=== PATIENT | female | born 1950 | race Two or more races ===

== ENCOUNTER 2018-01-10 03:10 | Inpatient (IN) | payer OTHER ==
[~2018-01-10] VITALS: Ht 152.4 cm; Wt 5.0 kg
[~2018-01-10 03:10] MED LIST: ASA81 MG; ASPIR 8181 MG PO; AVAPRO75 MG; CIPRO500 MG PO; GUAIFENESIN DM118 ML PO; HUMALOG MI100 UNIT/1; HYDRALAZINE HCL25 MG PO; IMODIUM A-1 MG/7.5 M PO; LEVAQUIN500 MG PO; LIPITOR40 MG; LOVENOX40 MG/0.4 SUBCUTANEO; METFORMIN HCL500 MG; PERCOCET 5-3251 EACH PO; PROTONIX20 MG; PROTONIX40 M1 PO; SYNTHROID50 MCG; VERAPAMIL ER240 MG
[2018-01-10] MEDS ORDERED: PROTONIX40 MG PO (03:44)
[2018-01-10] MEDS ORDERED: VERAPAMIL ER240 MG PO (03:45)
[2018-01-10] MEDS ORDERED: LACTULOSE10 GM/15 M PO (03:46)
[2018-01-28] MEDS ORDERED: LACTULOSE20 GM/30 M PO (09:43)
== END 2018-01-28 16:15 | disposition home or self-care (01) | DRG 389 ==
LOC: ER 03:10 → MEDJ 16:26
PROC: 4A033R1 Measurement of Arterial Saturation, Peripheral, Percutaneous Approach (ICD-10-PCS; 2018-01-10)
PROC: BW21YZZ Computerized Tomography (CT Scan) of Abdomen and Pelvis using Other Contrast (ICD-10-PCS; 2018-01-10)
PROC: 3E0336Z Introduction of Nutritional Substance into Peripheral Vein, Percutaneous Approach (ICD-10-PCS; 2018-01-11)
PROC: 02H633Z Insertion of Infusion Device into Right Atrium, Percutaneous Approach (ICD-10-PCS; 2018-01-12)
PROC: BW21Y0Z Computerized Tomography (CT Scan) of Abdomen and Pelvis using Other Contrast, Unenhanced and Enhanced (ICD-10-PCS; 2018-01-14)
PROC: 0DBN8ZX Excision of Sigmoid Colon, Via Natural or Artificial Opening Endoscopic, Diagnostic (ICD-10-PCS; principal; 2018-01-15)
PROC: 0D20XUZ Change Feeding Device in Upper Intestinal Tract, External Approach (ICD-10-PCS; 2018-01-26)
DX: K56.600 Partial intestinal obstruction, unspecified as to cause (principal); I69.351 Hemiplegia and hemiparesis following cerebral infarction affecting right dominant side; K94.23 Gastrostomy malfunction; G40.89 Other seizures; N39.0 Urinary tract infection, site not specified; K51.512 Left sided colitis with intestinal obstruction; E11.9 Type 2 diabetes mellitus without complications; K59.09 Other constipation; E03.8 Other specified hypothyroidism; I25.2 Old myocardial infarction; I10 Essential (primary) hypertension; R13.19 Other dysphagia; J44.9 Chronic obstructive pulmonary disease, unspecified; D64.89 Other specified anemias; R42 Dizziness and giddiness

== ENCOUNTER 2018-02-04 17:27 | Inpatient (IN) | payer OTHER ==
[~2018-02-04] VITALS: Ht 160 cm; Wt 72.6 kg
[~2018-02-04 17:27] MED LIST changes: +LACTULOSE10 GM/15 M PO; +LACTULOSE20 GM/30 M PO; +PROTONIX40 MG PO; +VERAPAMIL ER240 MG PO
[2018-02-20] MEDS ORDERED: AVAPRO150 MG PO (11:10)
[2018-02-20] MEDS ORDERED: LEVOTHYROXINE50 MCG PO (11:10)
[2018-02-20] MEDS ORDERED: METFORMIN HCL500 M2 PO (11:10)
[2018-02-20] MEDS ORDERED: Calan Sr 240MG TABLE PO (11:10)
== END 2018-02-20 17:52 | DRG 571 ==
LOC: ER 17:27 → MEDJ 02-05 18:10 → MEDI 02-05 18:10 → MEDJ 02-10 16:31
PROVIDERS: Orthopaedic Surgery
PROC: 0JBL0ZZ Excision of Right Upper Leg Subcutaneous Tissue and Fascia, Open Approach (ICD-10-PCS; 2018-02-10)
PROC: 0SP90JZ Removal of Synthetic Substitute from Right Hip Joint, Open Approach (ICD-10-PCS; 2018-02-10)
PROC: 8E0ZXY6 Isolation (ICD-10-PCS; 2018-02-10)
PROC: 0SR90JZ Replacement of Right Hip Joint with Synthetic Substitute, Open Approach (ICD-10-PCS; principal; 2018-02-10 07:00)
PROC: 02HV33Z Insertion of Infusion Device into Superior Vena Cava, Percutaneous Approach (ICD-10-PCS; 2018-02-11)
PROC: 30233N1 Transfusion of Nonautologous Red Blood Cells into Peripheral Vein, Percutaneous Approach (ICD-10-PCS; 2018-02-12)
DX: L02.415 Cutaneous abscess of right lower limb (principal); I69.351 Hemiplegia and hemiparesis following cerebral infarction affecting right dominant side; T81.4XXA Infection following a procedure, initial encounter; B96.4 Proteus (mirabilis) (morganii) as the cause of diseases classified elsewhere; Z74.01 Bed confinement status; E03.8 Other specified hypothyroidism; R13.19 Other dysphagia; Z93.1 Gastrostomy status; E11.65 Type 2 diabetes mellitus with hyperglycemia; I25.2 Old myocardial infarction; Z96.641 Presence of right artificial hip joint; D64.89 Other specified anemias; I10 Essential (primary) hypertension; Y83.8 Other surgical procedures as the cause of abnormal reaction of the patient, or of later complication, without mention of misadventure at the time of the procedure; Y92.098 Other place in other non-institutional residence as the place of occurrence of the external cause

== ENCOUNTER 2018-04-12 08:42 | Emergency (ER) | payer OTHER ==
[~2018-04-12] VITALS: Ht 157.5 cm; Wt 45.4 kg
[~2018-04-12 08:42] MED LIST changes: +AVAPRO150 MG PO; +Calan Sr 240MG TABLE PO; +LEVOTHYROXINE50 MCG PO; +METFORMIN HCL500 M2 PO
[2018-04-12] MEDS ORDERED: LINZESS145 MCG (08:58)
[2018-04-13] MEDS ORDERED: HUMALOG MI100 UNIT/1 SUBCUTANEO (09:50)
[2018-04-13] MEDS ORDERED: METFORMIN HCL500 MG PO (09:50)
== END 2018-04-13 09:54 | disposition home or self-care (01) ==
LOC: ER 08:42
DX: E11.65 Type 2 diabetes mellitus with hyperglycemia (principal); E86.0 Dehydration

== ENCOUNTER 2018-04-15 19:09 | Emergency (ER) | payer OTHER ==
[~2018-04-15] VITALS: Ht 154.9 cm; Wt 45.4 kg
[~2018-04-15 19:09] MED LIST changes: +HUMALOG MI100 UNIT/1 SUBCUTANEO; +LINZESS145 MCG; +METFORMIN HCL500 MG PO
== END 2018-04-15 22:40 | disposition home or self-care (01) ==
LOC: ER 19:09
DX: S01.121A Laceration with foreign body of right eyelid and periocular area, initial encounter (principal); S40.011A Contusion of right shoulder, initial encounter; S70.01XA Contusion of right hip, initial encounter; W45.8XXA Other foreign body or object entering through skin, initial encounter; Y93.89 Activity, other specified; Y92.018 Other place in single-family (private) house as the place of occurrence of the external cause; Y99.8 Other external cause status

== ENCOUNTER 2018-05-10 13:17 | Inpatient (IN) | payer OTHER ==
[~2018-05-10] VITALS: Ht 154.9 cm; Wt 120.0 kg
[2018-05-10] MEDS ORDERED: LINZESS145 MCG (13:49)
[2018-05-10] MEDS ORDERED: AVAPRO300 MG (13:49)
[2018-05-10] MEDS ORDERED: ATORVASTATIN CA40 MG (13:49)
[2018-05-10] MEDS ORDERED: LEVO-T50 MCG (13:49)
[2018-05-10] MEDS ORDERED: CALCIUM 600 +1 EACH (13:50)
[2018-05-10] MEDS ORDERED: METFORMIN HCL500 MG (13:50)
[2018-05-10] MEDS ORDERED: VERAPAMIL ER240 MG (13:50)
[2018-05-10] MEDS ORDERED: ASPIR 8181 MG (13:51)
[2018-05-10] MEDS ORDERED: PROTONIX40 MG (13:51)
[2018-05-10] MEDS ORDERED: DIABETISOURCE (13:52)
[2018-05-10] MEDS ORDERED: HUMALOG MI100 UNIT/1 (13:53)
== END 2018-06-01 14:30 | disposition home or self-care (01) | DRG 329 ==
LOC: ER 13:17 → SEC-K 05-11 17:57 → SURG 05-11 17:57 → SURH 05-19 15:28 → MEDI 05-19 15:28 → SURH 06-01 14:30
PROVIDERS: Surgery
PROC: BW25Y0Z Computerized Tomography (CT Scan) of Chest, Abdomen and Pelvis using Other Contrast, Unenhanced and Enhanced (ICD-10-PCS; 2018-05-11)
PROC: 0D1K0Z4 Bypass Ascending Colon to Cutaneous, Open Approach (ICD-10-PCS; 2018-05-12)
PROC: BB24Y0Z Computerized Tomography (CT Scan) of Bilateral Lungs using Other Contrast, Unenhanced and Enhanced (ICD-10-PCS; 2018-05-12)
PROC: 3E0336Z Introduction of Nutritional Substance into Peripheral Vein, Percutaneous Approach (ICD-10-PCS; 2018-05-12)
PROC: 0DTE0ZZ Resection of Large Intestine, Open Approach (ICD-10-PCS; principal; 2018-05-12 22:30)
PROC: 4A033R1 Measurement of Arterial Saturation, Peripheral, Percutaneous Approach (ICD-10-PCS; 2018-05-13)
PROC: 02HV33Z Insertion of Infusion Device into Superior Vena Cava, Percutaneous Approach (ICD-10-PCS; 2018-05-13)
PROC: 4A12X4Z Monitoring of Cardiac Electrical Activity, External Approach (ICD-10-PCS; 2018-05-13)
PROC: 30233N1 Transfusion of Nonautologous Red Blood Cells into Peripheral Vein, Percutaneous Approach (ICD-10-PCS; 2018-05-14)
PROC: BW41ZZZ Ultrasonography of Abdomen and Pelvis (ICD-10-PCS; 2018-05-15)
PROC: 8E0ZXY6 Isolation (ICD-10-PCS; 2018-05-17)
PROC: BW21Y0Z Computerized Tomography (CT Scan) of Abdomen and Pelvis using Other Contrast, Unenhanced and Enhanced (ICD-10-PCS; 2018-05-19)
DX: K56.2 Volvulus (principal); J18.9 Pneumonia, unspecified organism; K59.39 Other megacolon; K91.89 Other postprocedural complications and disorders of digestive system; B37.49 Other urogenital candidiasis; K63.2 Fistula of intestine; I69.351 Hemiplegia and hemiparesis following cerebral infarction affecting right dominant side; K56.0 Paralytic ileus; E11.65 Type 2 diabetes mellitus with hyperglycemia; E03.8 Other specified hypothyroidism; R13.19 Other dysphagia; Z93.1 Gastrostomy status; Z74.01 Bed confinement status; Z79.4 Long term (current) use of insulin; I25.2 Old myocardial infarction; D64.89 Other specified anemias; B96.29 Other Escherichia coli [E. coli] as the cause of diseases classified elsewhere; Z16.12 Extended spectrum beta lactamase (ESBL) resistance; E87.6 Hypokalemia; E83.39 Other disorders of phosphorus metabolism; E86.0 Dehydration

== ENCOUNTER 2018-06-03 16:36 | Emergency (ER) | payer OTHER ==
[~2018-06-03] VITALS: Ht 160 cm; Wt 45.4 kg
[~2018-06-03 16:36] MED LIST changes: +ASPIR 8181 MG; +ATORVASTATIN CA40 MG; +AVAPRO300 MG; +CALCIUM 600 +1 EACH; +DIABETISOURCE; +LEVO-T50 MCG; +PROTONIX40 MG
== END 2018-06-03 21:45 | disposition home or self-care (01) ==
LOC: ER 16:36
DX: R50.9 Fever, unspecified (principal); J11.1 Influenza due to unidentified influenza virus with other respiratory manifestations

== ENCOUNTER 2018-11-23 19:48 | Inpatient (IN) | payer OTHER ==
[~2018-11-23] VITALS: Ht 152.4 cm; Wt 49.0 kg
[2018-12-08] MEDS ORDERED: PANTOPRAZOLE SO40 MG PO (14:39)
[2018-12-08] MEDS ORDERED: AVAPRO300 MG PO (14:39)
[2018-12-08] MEDS ORDERED: LEVOTHYROXINE50 MCG PO (14:39)
[2018-12-08] MEDS ORDERED: LIPITOR40 MG PO (14:39)
[2018-12-08] MEDS ORDERED: VERAPAMIL 120 MG PO (14:39)
[2018-12-08] MEDS ORDERED: SERTRALINE HCL25 MG PO (14:39)
[2018-12-08] MEDS ORDERED: ASA-EC81 MG PO (14:39)
== END 2018-12-08 16:55 | disposition home or self-care (01) | DRG 693 ==
LOC: ER 19:48 → MEDI 11-24 15:30 → SEC-K 11-24 15:30 → MEDI 11-24 16:17
PROVIDERS: ADMIT Internal Medicine
PROC: BT4JZZZ Ultrasonography of Kidneys and Bladder (ICD-10-PCS; principal; 2018-11-24)
PROC: 4A033R1 Measurement of Arterial Saturation, Peripheral, Percutaneous Approach (ICD-10-PCS; 2018-11-24)
PROC: 3E0F7GC Introduction of Other Therapeutic Substance into Respiratory Tract, Via Natural or Artificial Opening (ICD-10-PCS; 2018-11-24)
PROC: 0T9B70Z Drainage of Bladder with Drainage Device, Via Natural or Artificial Opening (ICD-10-PCS; 2018-11-24)
PROC: 02HV33Z Insertion of Infusion Device into Superior Vena Cava, Percutaneous Approach (ICD-10-PCS; 2018-11-26)
PROC: B246ZZZ Ultrasonography of Right and Left Heart (ICD-10-PCS; 2018-11-26)
PROC: 30233N1 Transfusion of Nonautologous Red Blood Cells into Peripheral Vein, Percutaneous Approach (ICD-10-PCS; 2018-12-06)
DX: N20.0 Calculus of kidney (principal); K56.2 Volvulus; J18.1 Lobar pneumonia, unspecified organism; G81.01 Flaccid hemiplegia affecting right dominant side; B37.41 Candidal cystitis and urethritis; E86.0 Dehydration; E87.8 Other disorders of electrolyte and fluid balance, not elsewhere classified; D63.8 Anemia in other chronic diseases classified elsewhere; Z79.4 Long term (current) use of insulin; I69.320 Aphasia following cerebral infarction; E03.8 Other specified hypothyroidism; Z88.8 Allergy status to other drugs, medicaments and biological substances; E87.6 Hypokalemia; E78.49 Other hyperlipidemia; B96.4 Proteus (mirabilis) (morganii) as the cause of diseases classified elsewhere; Z74.01 Bed confinement status; E11.65 Type 2 diabetes mellitus with hyperglycemia; Z93.1 Gastrostomy status

== ENCOUNTER 2019-04-19 12:09 | Emergency (ER) | payer OTHER ==
[~2019-04-19] VITALS: Ht 157.5 cm; Wt 54.4 kg
[~2019-04-19 12:09] MED LIST changes: +ASA-EC81 MG PO; +AVAPRO300 MG PO; +LIPITOR40 MG PO; +PANTOPRAZOLE SO40 MG PO; +SERTRALINE HCL25 MG PO; +VERAPAMIL 120 MG PO
== END 2019-04-19 18:43 | disposition home or self-care (01) ==
LOC: ER 12:09
DX: R53.1 Weakness (principal); N39.0 Urinary tract infection, site not specified; E86.0 Dehydration

== ENCOUNTER 2019-04-29 12:59 | Inpatient (IN) | payer OTHER ==
[~2019-04-29] VITALS: Ht 154.9 cm; Wt 56.7 kg
--- NOTE | 2019-04-29 13:37 | NUR ---
PTE REFIERE VOMITOS X2, DEBILIDAD, MAREOS Y PRESION BAJA DESDE HOY. TRIAGE REALIZADO POR MS O TYLOR.
--- NOTE | 2019-04-29 13:42 | NUR ---
N. SAL EDUCA A PTE Y FAMILIAR SOBRE PROCEDIMIENTO A REALIZAR. SE CANALIZA A PTE Y SE REALIZAN MUESTRAS DE LABORATORIO BAJO MEDIDAS ESTERILES Y ASEPTICAS. SE AI A FAMILIAR DE PTE ENVASE PARA COLECTA DE U/A Y U/C. SE ADMINISTRA MEDICAMENTO SHU ORDEN MEDICA EL CUAL PTE TOLERA. SE MANTIENE BAJO OBSERVACION POR CAMBIOS. SE REALIZA CHEST PORTABLE.
--- NOTE | 2019-04-29 14:16 | NUR ---
REF. FAMILIAR DE PTE. A PTE. LE CAMBIARON GASTROSTOMIA en Y SE LE CAMBIO FOLY CATETHER. ORINA SE OBSERVA CLEAR
--- NOTE | 2019-04-29 16:03 | NUR ---
PACIENTE ALERTA Y ORIENTADA EN PERSONA Y LUGAR. EN POSICION SEMI-SENTADA EN GIO CON BARANDAS ELEVADAS. FAMILIAR PRESENTE. SE ORIENTO SOBRE PROCEDIMIENTO A REALIZAR Y REFIRIO ENTENDER FAMILIAR Y PACIENTE. SE REALIZO MUESTRAS DE LABORATORIO BAJO MEDIDAS ASEPTICAS Y SECANALIZA. SE COMIENZA A BAJAR BERTO A PACIENTE. SE NOTIFICO A DR. CROWDER PRESIONES DE PACIENTE Y REFIERE COLOCAR EL BERTO A 150ML/HR. PACIENTE CON SONDA URINARIA ELIMINANDO ORINA COLOR AMARILLO INTENSO. PACIENTE CON COLOSTOMIA,VENDAJES LIMPIOS. SE MANTIENE BAJO OBSERVACION POR CAMBIOS SIGNIFICATIVOS.
--- NOTE | 2019-04-29 23:08 | NUR ---
SE RECIBE PACIENTE ALERTA EN COMPANIA DE FAMILIAR, PACIENTE EN GIO CON BARRANDAS ELEVADAS POR CORTES SEGURIDAD. PACIENTE CON VENOPUNCION PATENTE MELIDA DE EDEMA Y ERRITEMA CON .9 NSS BAJANDO A 150 ML/HR. SE EFREN A PACIENTE EN CAMA BAJO OBSERVACION POR CAMBIOS EN CORTES CONDICION.
--- NOTE | 2019-04-30 07:59 | NUR ---
SE RECIBE DE TURNO ANTERIOR PACIENTE FEMENINA. ALERTA, ORIENTADA EN PERSONA. PT NO VERALIZA. ACOMPANADA POR FAMILIAR. CABECERA A 30 GRADOS. BARANDAS ELEVADAS POR CORTES SEGURIDAD. BUEN PATRON RESPIRATORIO. PIEL TIBIA AL TACTO. CANALIZACION PATENTE, MELIDA DE EDEMA Y/O ENROJECIMIENTO RECIBIENDO 0.9%NSS @ 150 ML/HR. SONDA URINARIA A GRAVEDAD. GASTROSTOMIA. PACIENTE EN ESPERA DE CONSULTA CON DR ATTILA HUNTER.
--- NOTE | 2019-04-30 10:30 | NUR ---
SE RECIBE PTE DE LA UNIDAD DE SECC K EN CAMA CON BARANDAS ELEVADA Y TIMBRE ACCESIBLE EN CONPANIA DE CORTES FAMILIAR, SE UBICA PTE EN CUBICULO #1 DE CRITICO SE OREINTA AL FAMILIAR SOBRE LAS NORMAS DE LA UNIDAD, SE ADMINSTRAN MEDICAMENTO SHU ORDENADO, SE INTENTA CANALIZA PTE PARA COMENZA EL TRATAMIENTO DE LEVOPHED EL CUAL NO SE TIENE EXITO, SE BUSCA A LA RN GRANT PARA QUE INTENTE CANALIZA PTE EL CUAL NO TIENE EXITO SE NOTIFICA A LA FREDI EMILEE EL CUAL ORDENADA QUE SE LLAME A PICC LINE SE NOTIFICA A LA SECRETARIA COLON PARA SEGUIMIENTO. SE CONECTA A MONTIOR CARDIACO Y OXYMETRIA DE PULSO SE OBSERVA PTE CON GASTROSTOMIA Y COLOSTOMIA Y ARORA DRENADO ORINA DE COLOR AMARILLO INTENSO. PTE SE MANTEINE EN OBSERVACION Y BAJO TRATAMIENTO, EN ESPERA DEL DR.RIVERA HUNTER
[2019-04-30] MEDS ORDERED: CALAN SR 120MG120 MG PO (16:10)
[2019-05-07] MEDS ORDERED: LIPITOR40 MG PO ×2 (11:43)
[2019-05-07] MEDS ORDERED: NORVASC2.5 M1 PO ×2 (11:43)
[2019-05-07] MEDS ORDERED: AVAPRO300 MG PO ×2 (11:43)
[2019-05-07] MEDS ORDERED: VERAPAMIL ER240 MG PO ×2 (11:43)
[2019-05-07] MEDS ORDERED: PANTOPRAZOLE SO40 MG PO ×2 (11:43)
[2019-05-07] MEDS ORDERED: LEVOTHYROXINE50 MCG PO ×2 (11:43)
[2019-05-07] MEDS ORDERED: ASA-EC81 MG PO ×2 (11:43)
[2019-05-07] MEDS ORDERED: SERTRALINE HCL25 MG PO ×2 (11:43)
== END 2019-05-07 19:41 | DRG 683 ==
LOC: ER 12:59 → SEC-K 04-30 12:34 → SURH 04-30 12:34
PROVIDERS: ADMIT Internal Medicine
PROC: 02HV33Z Insertion of Infusion Device into Superior Vena Cava, Percutaneous Approach (ICD-10-PCS; principal; 2019-04-30)
PROC: 4A12X4Z Monitoring of Cardiac Electrical Activity, External Approach (ICD-10-PCS; 2019-04-30)
PROC: 8E0ZXY6 Isolation (ICD-10-PCS; 2019-04-30)
PROC: 4A033R1 Measurement of Arterial Saturation, Peripheral, Percutaneous Approach (ICD-10-PCS; 2019-04-30)
PROC: 0T9B70Z Drainage of Bladder with Drainage Device, Via Natural or Artificial Opening (ICD-10-PCS; 2019-04-30)
PROC: 3E0F7GC Introduction of Other Therapeutic Substance into Respiratory Tract, Via Natural or Artificial Opening (ICD-10-PCS; 2019-04-30)
PROC: 3E0G76Z Introduction of Nutritional Substance into Upper GI, Via Natural or Artificial Opening (ICD-10-PCS; 2019-04-30)
PROC: 30233N1 Transfusion of Nonautologous Red Blood Cells into Peripheral Vein, Percutaneous Approach (ICD-10-PCS; 2019-05-04)
DX: N17.8 Other acute kidney failure (principal); N39.0 Urinary tract infection, site not specified; I69.351 Hemiplegia and hemiparesis following cerebral infarction affecting right dominant side; E87.1 Hypo-osmolality and hyponatremia; E86.0 Dehydration; D63.8 Anemia in other chronic diseases classified elsewhere; E11.22 Type 2 diabetes mellitus with diabetic chronic kidney disease; D69.49 Other primary thrombocytopenia; I12.9 Hypertensive chronic kidney disease with stage 1 through stage 4 chronic kidney disease, or unspecified chronic kidney disease; N18.2 Chronic kidney disease, stage 2 (mild); E87.8 Other disorders of electrolyte and fluid balance, not elsewhere classified; I95.89 Other hypotension; E03.8 Other specified hypothyroidism; B96.4 Proteus (mirabilis) (morganii) as the cause of diseases classified elsewhere; R13.19 Other dysphagia; R31.29 Other microscopic hematuria; K21.9 Gastro-esophageal reflux disease without esophagitis; F32.89 Other specified depressive episodes; I69.320 Aphasia following cerebral infarction; Z88.8 Allergy status to other drugs, medicaments and biological substances; Z79.4 Long term (current) use of insulin; Z74.01 Bed confinement status; Z93.1 Gastrostomy status

== ENCOUNTER 2019-06-28 16:50 | Emergency (ER) | payer OTHER ==
[~2019-06-28] VITALS: Ht 160 cm; Wt 45.4 kg
[~2019-06-28 16:50] MED LIST changes: +CALAN SR 120MG120 MG PO; +NORVASC2.5 M1 PO
== END 2019-06-28 17:49 | disposition home or self-care (01) ==
LOC: ER 16:50
DX: Z43.1 Encounter for attention to gastrostomy (principal)

== ENCOUNTER 2019-07-06 05:55 | Inpatient (IN) | payer OTHER ==
[~2019-07-06] VITALS: Ht 157.5 cm; Wt 56.7 kg
== END 2019-07-13 19:40 | disposition home or self-care (01) | DRG 389 ==
LOC: ER 05:55 → SEC-K 16:46 → SURG 16:46 → MEDJ 07-07 16:01
PROVIDERS: ADMIT Internal Medicine
PROC: 0DH67UZ Insertion of Feeding Device into Stomach, Via Natural or Artificial Opening (ICD-10-PCS; principal; 2019-07-07)
PROC: 3E0G76Z Introduction of Nutritional Substance into Upper GI, Via Natural or Artificial Opening (ICD-10-PCS; 2019-07-07)
PROC: B34KZZZ Ultrasonography of Bilateral Upper Extremity Arteries (ICD-10-PCS; 2019-07-08)
DX: K56.690 Other partial intestinal obstruction (principal); K94.09 Other complications of colostomy; E44.0 Moderate protein-calorie malnutrition; I69.351 Hemiplegia and hemiparesis following cerebral infarction affecting right dominant side; N17.8 Other acute kidney failure; E87.1 Hypo-osmolality and hyponatremia; E87.6 Hypokalemia; E86.0 Dehydration; E87.8 Other disorders of electrolyte and fluid balance, not elsewhere classified; E11.65 Type 2 diabetes mellitus with hyperglycemia; I69.391 Dysphagia following cerebral infarction; D63.8 Anemia in other chronic diseases classified elsewhere; R13.19 Other dysphagia; E03.8 Other specified hypothyroidism; I10 Essential (primary) hypertension; Z79.4 Long term (current) use of insulin; Z74.01 Bed confinement status

== ENCOUNTER 2020-04-14 13:52 | Inpatient (IN) | payer OTHER ==
[~2020-04-14] VITALS: Ht 157.5 cm; Wt 56.7 kg
[~2020-04-14 13:52] MED LIST changes: +FORTAMET500 MG PO; +LIPITOR40 M1 PO; +SERTRALINE20 MG/1 ML PO; +SYNTHROID50 MCG PO; +VERELAN240 MG PO
--- NOTE | 2020-04-14 14:04 | NUR ---
PACIENTE ALERTA Y ORIENTADA EN SIMON LIT ESFERAS, EN COMPANIA DE CORTES HIJA QUIEN REFIERE VOMITOS CON ARRON COLOR ESVIN DESDE HOY.
--- NOTE | 2020-04-14 14:56 | NUR ---
PACIENTE ALERTA Y ORIENTADA EN SIMON LIT ESFERAS, EN COMPANIA DE HIJA, AMBAS SON ORIENTADAS SOBRE ORDENES MEDICAS, REFIEREN ENTENDER. SE COLECTAN MUESTRAS DE ARRON. SE INTENTA CANALIZAR, EN KELLY OCASION, SIN EXITO. PACIENTE Y FAMILIAR REFIEREN NO QUERER MEDICAMENTOS POR VENA AL MOMENTO. SE COLECTA MUESTRA DE ORINA DESDE PORTAL DE SONDA URINARIA. PACIENTE ES LLEVADA A RADIOLOGIA PARA CT SCAN ABD/PELV SIN CONTRASTE.
[2020-05-30] MEDS ORDERED: Diflucan 200MG TABLE PO (10:09)
[2020-05-30] MEDS ORDERED: LOSARTAN POTAS100 MG PO (10:10)
[2020-05-30] MEDS ORDERED: SPIRONOLACTONE25 MG PO (10:10)
[2020-05-30] MEDS ORDERED: INTEGRA PLUS C1 EACH PO (10:10)
[2020-05-30] MEDS ORDERED: MICRO-K 1010 MEQ PO (10:11)
[2020-05-30] MEDS ORDERED: PROTEINEX-18 LI30 ML PO (10:12)
== END 2020-05-30 13:51 | disposition home health service (06) | DRG 981 ==
LOC: ER 13:52 → MEDI 18:14 → MEDJ 18:14 → MEDI 05-13 10:41
PROVIDERS: Surgery; ADMIT Internal Medicine; ATTEND Internal Medicine
PROC: BW21YZZ Computerized Tomography (CT Scan) of Abdomen and Pelvis using Other Contrast (ICD-10-PCS; 2020-04-14)
PROC: BT4JZZZ Ultrasonography of Kidneys and Bladder (ICD-10-PCS; 2020-04-14)
PROC: 0T9B70Z Drainage of Bladder with Drainage Device, Via Natural or Artificial Opening (ICD-10-PCS; 2020-04-14)
PROC: 05HY33Z Insertion of Infusion Device into Upper Vein, Percutaneous Approach (ICD-10-PCS; 2020-04-16)
PROC: 0D20XUZ Change Feeding Device in Upper Intestinal Tract, External Approach (ICD-10-PCS; 2020-04-21)
PROC: 30243N1 Transfusion of Nonautologous Red Blood Cells into Central Vein, Percutaneous Approach (ICD-10-PCS; 2020-04-25)
PROC: BW21YZZ Computerized Tomography (CT Scan) of Abdomen and Pelvis using Other Contrast (ICD-10-PCS; 2020-04-29)
PROC: BW3GYZZ Magnetic Resonance Imaging (MRI) of Pelvic Region using Other Contrast (ICD-10-PCS; 2020-05-04)
PROC: 0D7K8ZZ Dilation of Ascending Colon, Via Natural or Artificial Opening Endoscopic (ICD-10-PCS; 2020-05-05)
PROC: B24BZZZ Ultrasonography of Heart with Aorta (ICD-10-PCS; 2020-05-11)
PROC: 02HV33Z Insertion of Infusion Device into Superior Vena Cava, Percutaneous Approach (ICD-10-PCS; 2020-05-11)
PROC: 4A033R1 Measurement of Arterial Saturation, Peripheral, Percutaneous Approach (ICD-10-PCS; 2020-05-11)
PROC: BW4GZZZ Ultrasonography of Pelvic Region (ICD-10-PCS; 2020-05-13)
PROC: 0D1L4Z4 Bypass Transverse Colon to Cutaneous, Percutaneous Endoscopic Approach (ICD-10-PCS; principal; 2020-05-19 18:00)
DX: N17.9 Acute kidney failure, unspecified (principal); A41.89 Other specified sepsis; R65.20 Severe sepsis without septic shock; J15.8 Pneumonia due to other specified bacteria; N39.0 Urinary tract infection, site not specified; E87.1 Hypo-osmolality and hyponatremia; I69.351 Hemiplegia and hemiparesis following cerebral infarction affecting right dominant side; K56.690 Other partial intestinal obstruction; I31.3 Pericardial effusion (noninflammatory); J98.11 Atelectasis; J90 Pleural effusion, not elsewhere classified; G72.81 Critical illness myopathy; B37.89 Other sites of candidiasis; K94.23 Gastrostomy malfunction; K92.1 Melena; J81.1 Chronic pulmonary edema; J95.89 Other postprocedural complications and disorders of respiratory system, not elsewhere classified; K94.03 Colostomy malfunction; D64.9 Anemia, unspecified; B96.1 Klebsiella pneumoniae [K. pneumoniae] as the cause of diseases classified elsewhere; E86.0 Dehydration; E03.8 Other specified hypothyroidism; E11.65 Type 2 diabetes mellitus with hyperglycemia; K80.80 Other cholelithiasis without obstruction; K60.3 Anal fistula; R11.2 Nausea with vomiting, unspecified; R13.19 Other dysphagia; R31.29 Other microscopic hematuria; I08.3 Combined rheumatic disorders of mitral, aortic and tricuspid valves; I10 Essential (primary) hypertension; I69.320 Aphasia following cerebral infarction; Z74.01 Bed confinement status; Z79.4 Long term (current) use of insulin; Z03.818 Encounter for observation for suspected exposure to other biological agents ruled out
CPT/HCPCS: 72198

== ENCOUNTER 2020-07-11 21:00 | Inpatient (IN) | payer OTHER ==
[~2020-07-11] VITALS: Ht 157.5 cm; Wt 56.7 kg
[~2020-07-11 21:00] MED LIST changes: +Diflucan 200MG TABLE PO; +INTEGRA PLUS C1 EACH PO; +LOSARTAN POTAS100 MG PO; +MICRO-K 1010 MEQ PO; +PROTEINEX-18 LI30 ML PO; +SPIRONOLACTONE25 MG PO
[2020-07-11] MEDS ORDERED: HUMULIN R500 UNIT/2 (22:00)
--- NOTE | 2020-07-11 22:02 | NUR ---
SE RECIBE PTE. FEMENINA ALERTA CONCIENTE Y ORIENTADA EN AMBULANCIA ACOMPANDA POR HIJA QUE REFIERE PTE. CON VOMITOS X 4 Y ORINA ARENOSA PTE. LLEGA CON FOLY DE HOGAR. PTE. CON GASTROSTOMIA PTE. LLEGA DE HOGAR BRADEN. SE UBICA EN GIO 07 CON BARANDAS ELEVADAS.
--- NOTE | 2020-07-11 22:57 | NUR ---
PTE ALERTA Y ORIENTADA EN PERSONA EN GIO CON BARANDAS ELEVADAS. SE RECIBE PTE CON ARORA DE CORTES HOGAR Y PEG. SE CANALIZA EN BRAZO ANNE AREA MELIDA DE EDEMA Y DE ENROJECIMIENTO. SE LE DANDY MUESTRAS DE LAB. SHU ORDEN MEDICA BAJO MEDIDAS ASEPTICAS E ESTERIL. SE LE BRYON MUESTRAS DE U/C DE ARORA, PTE CON ORINA FETIDA DE COLOR AMARILLO OSCURO. SE OBSERVA BOLSA COLECTORA DE COLOR SARMAD. SE LE ADMINSTRAN MEDICAMENTOS SHU ORDEN MEDICA Y SE EDUCA A FAMILIAR SOBRE TRATAMIENTO MEDICO.
--- NOTE | 2020-07-12 07:00 | NUR ---
PACIENTE ALERTA Y ORIENTADA EN SIMON LIT ESFERAS, PRESENTA BUEN PATRON RESPIRATORIO Y MELIDA DE DOLOR. CANALIZADA EN BRAZO LT PATENTE Y MELIDA DE S/S DE FLEBITIS E INFILTRACION, RECIBIENDO 0.9% NSS A 150 ML/HR. PACIENTE CON SONDA URINARIA DRENANDO ORINA COLOR AMARILLO OSCURO. PENDIENTE EVALUACION DE DR GT COVARRUBIASCTO POR DESHIDRATACION Y UTI.
[2020-07-13] MEDS ORDERED: FLUCONAZOLE200 MG (08:45)
[2020-07-26] MEDS ORDERED: AMLODIPINE BESYL5 MG PO (10:48)
[2020-07-26] MEDS ORDERED: LIPITOR40 M1 PO (10:48)
[2020-07-26] MEDS ORDERED: FOLIC ACID1 MG PO (10:49)
[2020-07-26] MEDS ORDERED: PROTEINEX-18 LI30 ML NGT (10:49)
[2020-07-26] MEDS ORDERED: GABAPENTIN300 MG PO (10:50)
[2020-07-26] MEDS ORDERED: PROTONIX40 MG PO (10:50)
[2020-07-26] MEDS ORDERED: INTESTINEX680 M1 PO (10:50)
[2020-07-26] MEDS ORDERED: COZAAR50 MG PO (10:53)
[2020-07-26] MEDS ORDERED: NOVAFERRUM125 MG/5 M PO (11:02)
== END 2020-07-26 16:53 | disposition home or self-care (01) | DRG 690 ==
LOC: ER 21:00 → MEDI 07-12 12:24 → SEC-K 07-12 12:24 → MEDJ 07-12 12:24 → MEDI 07-12 18:04 → MEDJ 07-12 18:04
PROVIDERS: ADMIT Internal Medicine; ATTEND Internal Medicine
PROC: 4A033R1 Measurement of Arterial Saturation, Peripheral, Percutaneous Approach (ICD-10-PCS; principal; 2020-07-12)
PROC: 3E0F7GC Introduction of Other Therapeutic Substance into Respiratory Tract, Via Natural or Artificial Opening (ICD-10-PCS; 2020-07-12)
PROC: 05HY33Z Insertion of Infusion Device into Upper Vein, Percutaneous Approach (ICD-10-PCS; 2020-07-12)
PROC: 30233P1 Transfusion of Nonautologous Frozen Red Cells into Peripheral Vein, Percutaneous Approach (ICD-10-PCS; 2020-07-13)
DX: N39.0 Urinary tract infection, site not specified (principal); N17.8 Other acute kidney failure; E87.1 Hypo-osmolality and hyponatremia; I69.351 Hemiplegia and hemiparesis following cerebral infarction affecting right dominant side; J90 Pleural effusion, not elsewhere classified; B96.4 Proteus (mirabilis) (morganii) as the cause of diseases classified elsewhere; E11.65 Type 2 diabetes mellitus with hyperglycemia; E86.0 Dehydration; E03.8 Other specified hypothyroidism; E11.22 Type 2 diabetes mellitus with diabetic chronic kidney disease; L89.152 Pressure ulcer of sacral region, stage 2; L89.310 Pressure ulcer of right buttock, unstageable; D64.9 Anemia, unspecified; I69.320 Aphasia following cerebral infarction; I13.10 Hypertensive heart and chronic kidney disease without heart failure, with stage 1 through stage 4 chronic kidney disease, or unspecified chronic kidney disease; N18.9 Chronic kidney disease, unspecified; R13.19 Other dysphagia; B95.2 Enterococcus as the cause of diseases classified elsewhere; Z20.828 Contact with and (suspected) exposure to other viral communicable diseases; Z93.1 Gastrostomy status; Z74.01 Bed confinement status; Z93.3 Colostomy status

== ENCOUNTER 2020-09-25 22:29 | Inpatient (IN) | payer OTHER ==
[~2020-09-25] VITALS: Ht 157.5 cm; Wt 56.7 kg
[~2020-09-25 22:29] MED LIST changes: +AMLODIPINE BESYL5 MG PO; +COZAAR50 MG PO; +FLUCONAZOLE200 MG; +FOLIC ACID1 MG PO; +GABAPENTIN300 MG PO; +HUMULIN R500 UNIT/2; +INTESTINEX680 M1 PO; +NOVAFERRUM125 MG/5 M PO; +PROTEINEX-18 LI30 ML NGT
--- NOTE | 2020-09-25 22:40 | NUR ---
FAMILIAR REFIERE DIFICULTA PARA EVACUAR SE DANDY S/V YS EUBIAC EN AREA DE OBSERVACION
--- NOTE | 2020-09-26 00:48 | NUR ---
PT ALERTA Y ORIENTADA X3 ESFERAS SE LE ORIENTA SOBRE TX Y REFIERE ENTEDER. SE DANDY MUESTRAS DE ARRON Y VENOPUNCION CON TECNICAS ASEPTICAS. SE ADMINISTRAN MEDICAMENTOS E IVLFUIDS ORDENADOS. PT TOLERA TX. SE REALIZA MUESTRA DE B/C CON TECNICAS ASEPTICAS Y ESTERILES X2 CADA 30MINS. SE REALIZA INSERCION DE ARORA CATETER CON TECNICAS ASEPTICAS, SE OBSERVA OUTPUT DE COLOR AMARILLO INTENSO. SE MANTIENE BAJO OBSERVACION POR CAMBIOS EN JOSE ELIAS. PT MANEJADA POR MS MONTEMAYOR.
--- NOTE | 2020-09-26 08:25 | NUR ---
SE RECIBE PTE DEL TURNO ANTERIOR, ALERTA, UBICADA EN GIO NIVEL MAS BAJO, VALLEJO DE IDENTIFICACION Y BARANDAS ELEVADAS POR PRECAUCION, AL MOMENTO SIN FAMILIAR. SE OBSERVA CON CANULA NASAL A 3L/MIN, CON BUEN PATRON RESPIRATORIO Y PIEL TIBIA AL TACTO. IV PATENTE Y MELIDA DE EDEMA O ERITEMA CON 0.9% NSS @120ML/HR. PENDIENTE A CONSULTA CON DR Jin TONEY. SE REALIZAN B/C SHU ORDEN MEDICA Y SIGUIENDO MEDIDAS ASEPTICAS Y ESTERILES.
[2020-10-17] MEDS ORDERED: SYNTHROID75 MCG PO (14:07)
[2020-10-17] MEDS ORDERED: INTESTINEX680 M1 PO (14:08)
== END 2020-10-17 16:55 | disposition home or self-care (01) | DRG 637 ==
LOC: ER 22:29 → SEC-K 09-26 12:10 → MEDI 09-26 12:10
PROVIDERS: ADMIT Internal Medicine; ATTEND Internal Medicine
PROC: BW28ZZZ Computerized Tomography (CT Scan) of Head (ICD-10-PCS; 2020-09-26)
PROC: CB2YYZZ Tomographic (Tomo) Nuclear Medicine Imaging of Respiratory System using Other Radionuclide (ICD-10-PCS; 2020-09-26)
PROC: 4A033R1 Measurement of Arterial Saturation, Peripheral, Percutaneous Approach (ICD-10-PCS; 2020-09-26)
PROC: 0W9B30Z Drainage of Left Pleural Cavity with Drainage Device, Percutaneous Approach (ICD-10-PCS; principal; 2020-09-28)
PROC: 02HV33Z Insertion of Infusion Device into Superior Vena Cava, Percutaneous Approach (ICD-10-PCS; 2020-09-28)
PROC: 3E0F7SF Introduction of Other Gas into Respiratory Tract, Via Natural or Artificial Opening (ICD-10-PCS; 2020-09-29)
PROC: 30233N1 Transfusion of Nonautologous Red Blood Cells into Peripheral Vein, Percutaneous Approach (ICD-10-PCS; 2020-09-30)
PROC: 4A12X4Z Monitoring of Cardiac Electrical Activity, External Approach (ICD-10-PCS; 2020-09-30)
DX: E11.65 Type 2 diabetes mellitus with hyperglycemia (principal); J18.9 Pneumonia, unspecified organism; J81.0 Acute pulmonary edema; E87.1 Hypo-osmolality and hyponatremia; N17.9 Acute kidney failure, unspecified; N30.00 Acute cystitis without hematuria; I69.351 Hemiplegia and hemiparesis following cerebral infarction affecting right dominant side; J98.11 Atelectasis; J90 Pleural effusion, not elsewhere classified; E86.0 Dehydration; Z93.1 Gastrostomy status; Z93.3 Colostomy status; E03.9 Hypothyroidism, unspecified; Z79.01 Long term (current) use of anticoagulants; I10 Essential (primary) hypertension; Z20.822 Contact with and (suspected) exposure to COVID-19; B95.2 Enterococcus as the cause of diseases classified elsewhere; B96.1 Klebsiella pneumoniae [K. pneumoniae] as the cause of diseases classified elsewhere; B95.61 Methicillin susceptible Staphylococcus aureus infection as the cause of diseases classified elsewhere; L89.152 Pressure ulcer of sacral region, stage 2; E87.5 Hyperkalemia; D64.9 Anemia, unspecified; Z79.4 Long term (current) use of insulin; Z74.01 Bed confinement status; L89.132 Pressure ulcer of right lower back, stage 2

== ENCOUNTER 2020-12-06 10:06 | Emergency (ER) | payer OTHER ==
[~2020-12-06] VITALS: Ht 165.1 cm; Wt 59.0 kg
[~2020-12-06 10:06] MED LIST changes: +SYNTHROID75 MCG PO
== END 2020-12-06 17:58 | disposition home or self-care (01) ==
LOC: ER 10:06
DX: K94.23 Gastrostomy malfunction (principal); R13.19 Other dysphagia

== ENCOUNTER 2021-04-08 11:55 | Inpatient (IN) | payer OTHER ==
[~2021-04-08] VITALS: Ht 154.9 cm; Wt 54.0 kg
--- NOTE | 2021-04-08 11:59 | NUR ---
PTE ALERTA Y ORIENTADA EN SIMON LIT ESFERAS, LLEGA EN AMBULANCIA, FAMILIAR REFIERE INFECCION DE ORINA Y VOMITO EN LA MANANA DE CATALINA BAÑUELOS. SE PRESENTA A DR Y SE UBICA EN AREA DE OBSERVACION.
[2021-04-10] MEDS ORDERED: GLIPIZIDE5 MG (08:12)
[2021-04-10] MEDS ORDERED: GABAPENTIN300 M2 (08:12)
[2021-04-10] MEDS ORDERED: METFORMIN HCL1000 M3 (08:12)
[2021-04-10] MEDS ORDERED: VERAPAMIL ER240 MG (08:13)
[2021-04-10] MEDS ORDERED: SPIRONOLACTONE25 MG (08:13)
[2021-04-17] MEDS ORDERED: FOLIC ACID1 MG PO (13:58)
[2021-04-17] MEDS ORDERED: CARDIZEM CD300 MG PO (13:58)
[2021-04-17] MEDS ORDERED: IRON325 MG PO (13:58)
[2021-04-17] MEDS ORDERED: ULTRA B-100 CO1 EAC1 PO (13:58)
[2021-04-17] MEDS ORDERED: INTESTINEX680 M1 PO (13:58)
[2021-04-17] MEDS ORDERED: FLUCONAZOLE200 MG PO (13:58)
== END 2021-04-17 20:00 | disposition home or self-care (01) | DRG 689 ==
LOC: ER 11:55 → MEDJ 13:08 → MEDI 13:08 → MEDJ 15:23
PROVIDERS: ADMIT Internal Medicine; ATTEND Internal Medicine
PROC: 05HY33Z Insertion of Infusion Device into Upper Vein, Percutaneous Approach (ICD-10-PCS; 2021-04-08)
PROC: BW25ZZZ Computerized Tomography (CT Scan) of Chest, Abdomen and Pelvis (ICD-10-PCS; 2021-04-09)
PROC: 4A033R1 Measurement of Arterial Saturation, Peripheral, Percutaneous Approach (ICD-10-PCS; 2021-04-09)
PROC: BW2110Z Computerized Tomography (CT Scan) of Abdomen and Pelvis using Low Osmolar Contrast, Unenhanced and Enhanced (ICD-10-PCS; 2021-04-11)
PROC: 30233N1 Transfusion of Nonautologous Red Blood Cells into Peripheral Vein, Percutaneous Approach (ICD-10-PCS; principal; 2021-04-13)
PROC: 02PY33Z Removal of Infusion Device from Great Vessel, Percutaneous Approach (ICD-10-PCS; 2021-04-17)
DX: N39.0 Urinary tract infection, site not specified (principal); J18.9 Pneumonia, unspecified organism; E87.1 Hypo-osmolality and hyponatremia; K92.1 Melena; B96.4 Proteus (mirabilis) (morganii) as the cause of diseases classified elsewhere; B96.5 Pseudomonas (aeruginosa) (mallei) (pseudomallei) as the cause of diseases classified elsewhere; E86.0 Dehydration; D64.9 Anemia, unspecified; E87.6 Hypokalemia; K80.20 Calculus of gallbladder without cholecystitis without obstruction; R11.10 Vomiting, unspecified; I10 Essential (primary) hypertension; E11.65 Type 2 diabetes mellitus with hyperglycemia; Z79.4 Long term (current) use of insulin; Z74.01 Bed confinement status; Z86.73 Personal history of transient ischemic attack (TIA), and cerebral infarction without residual deficits; Z20.822 Contact with and (suspected) exposure to COVID-19; Z93.1 Gastrostomy status; Z93.3 Colostomy status

== ENCOUNTER 2021-05-04 11:39 | Inpatient (IN) | payer OTHER ==
[~2021-05-04] VITALS: Ht 61 cm; Wt 5.0 kg
[~2021-05-04 11:39] MED LIST changes: +CARDIZEM CD300 MG PO; +FLUCONAZOLE200 MG PO; +GABAPENTIN300 M2; +GLIPIZIDE5 MG; +IRON325 MG PO; +METFORMIN HCL1000 M3; +SPIRONOLACTONE25 MG; +ULTRA B-100 CO1 EAC1 PO
[2021-05-10] MEDS ORDERED: INTESTINEX680 M1 PO (13:07)
== END 2021-05-10 21:20 | disposition home or self-care (01) | DRG 394 ==
LOC: ER 11:39 → MEDI 18:08
PROVIDERS: ADMIT Internal Medicine; ATTEND Internal Medicine
PROC: BW21ZZZ Computerized Tomography (CT Scan) of Abdomen and Pelvis (ICD-10-PCS; principal; 2021-05-04)
PROC: 8E0ZXY6 Isolation (ICD-10-PCS; 2021-05-06)
PROC: 02HV33Z Insertion of Infusion Device into Superior Vena Cava, Percutaneous Approach (ICD-10-PCS; 2021-05-07)
DX: K94.03 Colostomy malfunction (principal); E87.1 Hypo-osmolality and hyponatremia; K56.690 Other partial intestinal obstruction; N39.0 Urinary tract infection, site not specified; Z16.12 Extended spectrum beta lactamase (ESBL) resistance; G81.91 Hemiplegia, unspecified affecting right dominant side; E86.0 Dehydration; E87.6 Hypokalemia; L89.329 Pressure ulcer of left buttock, unspecified stage; B96.20 Unspecified Escherichia coli [E. coli] as the cause of diseases classified elsewhere; B95.61 Methicillin susceptible Staphylococcus aureus infection as the cause of diseases classified elsewhere; B96.4 Proteus (mirabilis) (morganii) as the cause of diseases classified elsewhere; I10 Essential (primary) hypertension; E11.9 Type 2 diabetes mellitus without complications; Z86.73 Personal history of transient ischemic attack (TIA), and cerebral infarction without residual deficits; Z74.01 Bed confinement status; R10.9 Unspecified abdominal pain; R11.2 Nausea with vomiting, unspecified; Z79.4 Long term (current) use of insulin; Z20.822 Contact with and (suspected) exposure to COVID-19

== ENCOUNTER 2021-05-24 11:03 | Inpatient (IN) | payer OTHER ==
[~2021-05-24] VITALS: Ht 160 cm; Wt 54.4 kg
[2021-06-01] MEDS ORDERED: VERAPAMIL ER240 MG (14:41)
[2021-06-01] MEDS ORDERED: NORVASC2.5 MG (14:41)
[2021-06-01] MEDS ORDERED: LOSARTAN POTAS100 MG (14:41)
[2021-06-11] MEDS ORDERED: INTEGRA PLUS C1 EACH PO (15:40)
== END 2021-06-11 20:17 | disposition home health service (06) | DRG 394 ==
LOC: ER 11:03 → SEC-K 18:48 → MEDI 05-25 10:20 → ICU-2 05-25 10:38 → MEDJ 05-26 13:59
PROVIDERS: ADMIT Internal Medicine; ATTEND Internal Medicine
PROC: 4A12X4Z Monitoring of Cardiac Electrical Activity, External Approach (ICD-10-PCS; 2021-05-26)
PROC: 0DJD8ZZ Inspection of Lower Intestinal Tract, Via Natural or Artificial Opening Endoscopic (ICD-10-PCS; principal; 2021-06-01)
PROC: 30233N1 Transfusion of Nonautologous Red Blood Cells into Peripheral Vein, Percutaneous Approach (ICD-10-PCS; 2021-06-06)
DX: K94.03 Colostomy malfunction (principal); B37.49 Other urogenital candidiasis; I69.351 Hemiplegia and hemiparesis following cerebral infarction affecting right dominant side; N17.8 Other acute kidney failure; K56.690 Other partial intestinal obstruction; Y83.8 Other surgical procedures as the cause of abnormal reaction of the patient, or of later complication, without mention of misadventure at the time of the procedure; E11.9 Type 2 diabetes mellitus without complications; I10 Essential (primary) hypertension; Z74.01 Bed confinement status; Z20.822 Contact with and (suspected) exposure to COVID-19; R13.19 Other dysphagia; D64.9 Anemia, unspecified; E86.0 Dehydration; Z79.4 Long term (current) use of insulin; I69.391 Dysphagia following cerebral infarction

== ENCOUNTER 2021-06-22 19:07 | Inpatient (IN) | payer OTHER ==
[~2021-06-22] VITALS: Ht 157.5 cm; Wt 44.5 kg
[~2021-06-22 19:07] MED LIST changes: +LOSARTAN POTAS100 MG; +NORVASC2.5 MG
[2021-06-25] MEDS ORDERED: LINZESS145 MCG (11:07)
== END 2021-06-27 19:24 | disposition home or self-care (01) | DRG 683 ==
LOC: ER 19:07 → SURH 06-23 00:30
PROVIDERS: ADMIT Internal Medicine; ATTEND Internal Medicine
PROC: 4A12X4Z Monitoring of Cardiac Electrical Activity, External Approach (ICD-10-PCS; principal; 2021-06-23)
DX: N17.8 Other acute kidney failure (principal); K94.03 Colostomy malfunction; E87.1 Hypo-osmolality and hyponatremia; I69.351 Hemiplegia and hemiparesis following cerebral infarction affecting right dominant side; K56.690 Other partial intestinal obstruction; N39.0 Urinary tract infection, site not specified; Z16.12 Extended spectrum beta lactamase (ESBL) resistance; Z20.822 Contact with and (suspected) exposure to COVID-19; Z74.01 Bed confinement status; Y83.8 Other surgical procedures as the cause of abnormal reaction of the patient, or of later complication, without mention of misadventure at the time of the procedure; I69.820 Aphasia following other cerebrovascular disease; E87.6 Hypokalemia; B96.20 Unspecified Escherichia coli [E. coli] as the cause of diseases classified elsewhere

== ENCOUNTER 2021-08-31 10:19 | Emergency (ER) | payer OTHER ==
[~2021-08-31] VITALS: Ht 152.4 cm; Wt 45.4 kg
== END 2021-08-31 11:40 | disposition home or self-care (01) ==
LOC: ER 10:19
DX: Z43.1 Encounter for attention to gastrostomy (principal)

== ENCOUNTER 2021-09-11 20:18 | Emergency (ER) | payer OTHER ==
[~2021-09-11] VITALS: Ht 154.9 cm; Wt 63.5 kg
== END 2021-09-11 20:51 | disposition home or self-care (01) ==
LOC: ER 20:18
DX: K94.29 Other complications of gastrostomy (principal)

== ENCOUNTER 2021-09-23 11:41 | Emergency (ER) | payer OTHER ==
[~2021-09-23] VITALS: Ht 157.5 cm; Wt 46.3 kg
== END 2021-09-23 12:02 | disposition home or self-care (01) ==
LOC: ER 11:41
DX: K94.23 Gastrostomy malfunction (principal)

== ENCOUNTER 2021-10-04 18:46 | Inpatient (IN) | payer OTHER ==
[~2021-10-04] VITALS: Ht 157.5 cm; Wt 45.4 kg
[2021-10-08] MEDS ORDERED: FAMOTIDINE20 MG (08:36)
[2021-10-08] MEDS ORDERED: LINZESS145 MCG (08:36)
== END 2021-10-31 17:07 | disposition home or self-care (01) | DRG 388 ==
LOC: ER 18:46 → MEDJ 10-05 14:42 → MEDI 10-10 10:45 → MEDJ 10-19 16:39 → MEDI 10-29 17:35 → MEDJ 10-29 17:55
PROVIDERS: ADMIT Internal Medicine; ATTEND Internal Medicine
PROC: BW21ZZZ Computerized Tomography (CT Scan) of Abdomen and Pelvis (ICD-10-PCS; 2021-10-05)
PROC: 0D20XUZ Change Feeding Device in Upper Intestinal Tract, External Approach (ICD-10-PCS; principal; 2021-10-06)
PROC: 30243N1 Transfusion of Nonautologous Red Blood Cells into Central Vein, Percutaneous Approach (ICD-10-PCS; 2021-10-08)
PROC: 05HY33Z Insertion of Infusion Device into Upper Vein, Percutaneous Approach (ICD-10-PCS; 2021-10-08)
PROC: 8E0ZXY6 Isolation (ICD-10-PCS; 2021-10-10)
PROC: 4A033R1 Measurement of Arterial Saturation, Peripheral, Percutaneous Approach (ICD-10-PCS; 2021-10-15)
PROC: 3E0F7GC Introduction of Other Therapeutic Substance into Respiratory Tract, Via Natural or Artificial Opening (ICD-10-PCS; 2021-10-15)
PROC: BW25ZZZ Computerized Tomography (CT Scan) of Chest, Abdomen and Pelvis (ICD-10-PCS; 2021-10-16)
PROC: 4A12X4Z Monitoring of Cardiac Electrical Activity, External Approach (ICD-10-PCS; 2021-10-18)
PROC: 02PYX3Z Removal of Infusion Device from Great Vessel, External Approach (ICD-10-PCS; 2021-10-19)
PROC: 02HV33Z Insertion of Infusion Device into Superior Vena Cava, Percutaneous Approach (ICD-10-PCS; 2021-10-20)
DX: K56.690 Other partial intestinal obstruction (principal); J69.1 Pneumonitis due to inhalation of oils and essences; U07.1 COVID-19; N39.0 Urinary tract infection, site not specified; N17.8 Other acute kidney failure; E87.1 Hypo-osmolality and hyponatremia; K94.23 Gastrostomy malfunction; K94.03 Colostomy malfunction; E87.0 Hyperosmolality and hypernatremia; E86.0 Dehydration; E11.9 Type 2 diabetes mellitus without complications; B96.20 Unspecified Escherichia coli [E. coli] as the cause of diseases classified elsewhere; D53.0 Protein deficiency anemia; D51.3 Other dietary vitamin B12 deficiency anemia; D63.8 Anemia in other chronic diseases classified elsewhere; Y84.8 Other medical procedures as the cause of abnormal reaction of the patient, or of later complication, without mention of misadventure at the time of the procedure; Y92.128 Other place in nursing home as the place of occurrence of the external cause; Z86.73 Personal history of transient ischemic attack (TIA), and cerebral infarction without residual deficits; Y95 Nosocomial condition; Z74.01 Bed confinement status; Z20.822 Contact with and (suspected) exposure to COVID-19; Z79.4 Long term (current) use of insulin

== ENCOUNTER 2021-12-05 13:46 | Inpatient (IN) | payer OTHER ==
[~2021-12-05] VITALS: Ht 157.5 cm; Wt 45.4 kg
[~2021-12-05 13:46] MED LIST changes: +FAMOTIDINE20 MG
[2021-12-05] MEDS ORDERED: ADULT ASPIRIN81 MG PO (14:19)
[2021-12-05] MEDS ORDERED: ATORVASTATIN CA40 MG PO (14:19)
[2021-12-05] MEDS ORDERED: LEVOTHYROXINE50 MCG PO (14:20)
[2021-12-05] MEDS ORDERED: SERTRALINE HCL25 MG PO (14:20)
[2021-12-06] MEDS ORDERED: SPIRONOLACTONE25 MG (10:26)
[2021-12-24] MEDS ORDERED: GABAPENTIN300 MG PO (15:00)
[2021-12-24] MEDS ORDERED: LIPITOR40 MG PO (15:00)
[2021-12-24] MEDS ORDERED: LEVOTHYROXINE75 MCG PO (15:01)
[2021-12-24] MEDS ORDERED: LANSOPRAZOLE30 MG GT (15:01)
[2021-12-24] MEDS ORDERED: HUMULIN N100 UNIT/2 SUBCUTANEO ×2 (15:03→15:04)
[2021-12-24] MEDS ORDERED: VITAMIN D3125 MC2 PO (15:04)
[2021-12-24] MEDS ORDERED: MULTIVITAMIN-M1 EACH PO (15:05)
[2021-12-24] MEDS ORDERED: FOLIC ACID1 MG PO (15:06)
[2021-12-24] MEDS ORDERED: SERTRALINE HCL25 MG PO (15:06)
[2021-12-24] MEDS ORDERED: ADULT ASPIRIN81 MG PO (15:07)
[2021-12-24] MEDS ORDERED: SPIRONOLACTONE25 MG GT (15:08)
[2021-12-24] MEDS ORDERED: CARDIZEM CD300 MG PO (15:10)
== END 2021-12-24 20:35 | disposition home or self-care (01) | DRG 683 ==
LOC: ER 13:46 → SEC-K 12-06 08:32 → MEDI 12-06 10:15
PROVIDERS: ADMIT Internal Medicine; ATTEND Internal Medicine
PROC: 02HV33Z Insertion of Infusion Device into Superior Vena Cava, Percutaneous Approach (ICD-10-PCS; principal; 2021-12-07)
PROC: 30243N1 Transfusion of Nonautologous Red Blood Cells into Central Vein, Percutaneous Approach (ICD-10-PCS; 2021-12-19)
DX: N17.8 Other acute kidney failure (principal); N39.0 Urinary tract infection, site not specified; Z16.12 Extended spectrum beta lactamase (ESBL) resistance; E87.1 Hypo-osmolality and hyponatremia; G81.91 Hemiplegia, unspecified affecting right dominant side; K94.03 Colostomy malfunction; K56.690 Other partial intestinal obstruction; E86.0 Dehydration; D64.9 Anemia, unspecified; N20.0 Calculus of kidney; R13.19 Other dysphagia; B96.5 Pseudomonas (aeruginosa) (mallei) (pseudomallei) as the cause of diseases classified elsewhere; B96.29 Other Escherichia coli [E. coli] as the cause of diseases classified elsewhere; R79.89 Other specified abnormal findings of blood chemistry; Z74.01 Bed confinement status; E11.9 Type 2 diabetes mellitus without complications; Z79.4 Long term (current) use of insulin; E03.8 Other specified hypothyroidism; Z20.822 Contact with and (suspected) exposure to COVID-19; I10 Essential (primary) hypertension; I25.10 Atherosclerotic heart disease of native coronary artery without angina pectoris

== ENCOUNTER 2021-12-31 08:49 | Inpatient (IN) | payer OTHER ==
[~2021-12-31] VITALS: Ht 154.9 cm; Wt 45.4 kg
[~2021-12-31 08:49] MED LIST changes: +ADULT ASPIRIN81 MG PO; +ATORVASTATIN CA40 MG PO; +HUMULIN N100 UNIT/2 SUBCUTANEO; +LANSOPRAZOLE30 MG GT; +LEVOTHYROXINE75 MCG PO; +MULTIVITAMIN-M1 EACH PO; +SPIRONOLACTONE25 MG GT; +VITAMIN D3125 MC2 PO
[2021-12-31] MEDS ORDERED: DILTIAZEM ER300 MG PO (09:09)
--- NOTE | 2021-12-31 09:14 | NUR ---
SE RECIBE PACIENTE ALERTA, EN AMBULANCIA ACOMPANADA DE HIJA REFIERE TRAER POR VOMITOS, PTE VIERE DE HOGAR SUSTITUTO JAQUAN ARORA, Y COLOSTOMIA. SE ESTIMAN S/V SE UBICA EN AREA DE OBSERVACION GIO # 10
--- NOTE | 2021-12-31 11:58 | NUR ---
PTE EVALUADA POR . SE ORIENTA PTE Y FAMILIAR SOBRE TRATAMIENTO A SEGUIR, EL CUAL REFIEREN ENTENDER. SE COLECTAN MUESTRAS DE ARRON UTILIZANDO MEDIDAS ASEPTICAS. SE HACE CAMBIO DE FOLLEY CATETER Y SE EFREN DRENANDO A GRAVEDAD. PEND PICC LINE PROTOCOL. PEND CULTIVOS DE ARRON.
[2022-01-17] MEDS ORDERED: Neurin-Sl Tablet Sl SL (13:42)
[2022-01-17] MEDS ORDERED: DILTIAZEM ER300 MG PO (13:42)
[2022-01-17] MEDS ORDERED: GABAPENTIN300 MG PO (13:42)
[2022-01-17] MEDS ORDERED: LIPITOR40 MG PO (13:42)
== END 2022-01-17 18:22 | disposition home or self-care (01) | DRG 689 ==
LOC: ER 08:49 → MEDI 15:27
PROVIDERS: ADMIT Internal Medicine; ATTEND Internal Medicine
PROC: 02HV33Z Insertion of Infusion Device into Superior Vena Cava, Percutaneous Approach (ICD-10-PCS; 2021-12-31)
PROC: BW21YZZ Computerized Tomography (CT Scan) of Abdomen and Pelvis using Other Contrast (ICD-10-PCS; principal; 2022-01-05)
PROC: 30233N1 Transfusion of Nonautologous Red Blood Cells into Peripheral Vein, Percutaneous Approach (ICD-10-PCS; 2022-01-16)
DX: N39.0 Urinary tract infection, site not specified (principal); I63.89 Other cerebral infarction; K94.23 Gastrostomy malfunction; N17.8 Other acute kidney failure; G81.93 Hemiplegia, unspecified affecting right nondominant side; J90 Pleural effusion, not elsewhere classified; K92.0 Hematemesis; E86.0 Dehydration; E87.8 Other disorders of electrolyte and fluid balance, not elsewhere classified; D63.8 Anemia in other chronic diseases classified elsewhere; D72.828 Other elevated white blood cell count; R13.19 Other dysphagia; D69.6 Thrombocytopenia, unspecified; Z74.01 Bed confinement status; I10 Essential (primary) hypertension; E11.9 Type 2 diabetes mellitus without complications; Z79.4 Long term (current) use of insulin; E03.8 Other specified hypothyroidism; Z20.822 Contact with and (suspected) exposure to COVID-19; B96.5 Pseudomonas (aeruginosa) (mallei) (pseudomallei) as the cause of diseases classified elsewhere

== ENCOUNTER 2022-01-23 11:47 | Inpatient (IN) | payer OTHER ==
[~2022-01-23] VITALS: Ht 162.6 cm; Wt 49.9 kg
[~2022-01-23 11:47] MED LIST changes: +DILTIAZEM ER300 MG PO; +Neurin-Sl Tablet Sl SL
[2022-01-24] MEDS ORDERED: ABANEU-SL TABL1 EACH (08:56)
== END 2022-02-12 21:27 | disposition home or self-care (01) | DRG 330 ==
LOC: ER 11:47 → MEDJ 19:36 → ICU 19:36 → ICU-2 19:50 → MEDJ 01-25 13:29
PROVIDERS: Surgery; ADMIT Internal Medicine; ATTEND Internal Medicine
PROC: 02HV33Z Insertion of Infusion Device into Superior Vena Cava, Percutaneous Approach (ICD-10-PCS; 2022-01-23)
PROC: B24BZZZ Ultrasonography of Heart with Aorta (ICD-10-PCS; 2022-01-25)
PROC: 0DBE4ZZ Excision of Large Intestine, Percutaneous Endoscopic Approach (ICD-10-PCS; 2022-02-01)
PROC: 0D1E4Z4 Bypass Large Intestine to Cutaneous, Percutaneous Endoscopic Approach (ICD-10-PCS; principal; 2022-02-01 16:00)
PROC: 4A12X4Z Monitoring of Cardiac Electrical Activity, External Approach (ICD-10-PCS; 2022-02-02)
DX: K94.03 Colostomy malfunction (principal); N17.8 Other acute kidney failure; N39.0 Urinary tract infection, site not specified; E87.0 Hyperosmolality and hypernatremia; E86.0 Dehydration; R13.19 Other dysphagia; D64.9 Anemia, unspecified; E87.8 Other disorders of electrolyte and fluid balance, not elsewhere classified; B95.2 Enterococcus as the cause of diseases classified elsewhere; B96.89 Other specified bacterial agents as the cause of diseases classified elsewhere; Z74.01 Bed confinement status; E03.8 Other specified hypothyroidism; I10 Essential (primary) hypertension; E11.65 Type 2 diabetes mellitus with hyperglycemia; Z79.4 Long term (current) use of insulin

== ENCOUNTER 2022-06-05 08:00 | Emergency (ER) | payer OTHER ==
[~2022-06-05] VITALS: Ht 149.9 cm; Wt 49.9 kg
[~2022-06-05 08:00] MED LIST changes: +ABANEU-SL TABL1 EACH
== END 2022-06-05 11:32 | disposition home or self-care (01) ==
LOC: ER 08:00
DX: K94.23 Gastrostomy malfunction (principal)

== ENCOUNTER 2022-08-11 11:11 | Inpatient (IN) | payer OTHER ==
[2022-08-12] MEDS ORDERED: CLOPIDOGREL BIS75 MG (08:55)
[2022-08-12] MEDS ORDERED: SERTRALINE HCL25 MG (08:55)
[2022-08-23] MEDS ORDERED: XOPENEX0.63 MG/3 IH (15:43)
== END 2022-08-24 00:17 | disposition home or self-care (01) | DRG 871 ==
LOC: ER 11:11 → SURH 17:48 → SURG 08-12 11:46
PROVIDERS: ADMIT Internal Medicine; ATTEND Internal Medicine
PROC: 02HV33Z Insertion of Infusion Device into Superior Vena Cava, Percutaneous Approach (ICD-10-PCS; 2022-08-12)
PROC: 30233N1 Transfusion of Nonautologous Red Blood Cells into Peripheral Vein, Percutaneous Approach (ICD-10-PCS; 2022-08-16)
PROC: BW24ZZZ Computerized Tomography (CT Scan) of Chest and Abdomen (ICD-10-PCS; principal; 2022-08-19)
DX: A41.9 Sepsis, unspecified organism (principal); J18.8 Other pneumonia, unspecified organism; N39.0 Urinary tract infection, site not specified; N17.8 Other acute kidney failure; I69.951 Hemiplegia and hemiparesis following unspecified cerebrovascular disease affecting right dominant side; B37.89 Other sites of candidiasis; E87.0 Hyperosmolality and hypernatremia; E86.0 Dehydration; E87.5 Hyperkalemia; E87.6 Hypokalemia; F02.80 Dementia in other diseases classified elsewhere, unspecified severity, without behavioral disturbance, psychotic disturbance, mood disturbance, and anxiety; R13.19 Other dysphagia; D63.1 Anemia in chronic kidney disease; Z74.01 Bed confinement status; N18.9 Chronic kidney disease, unspecified; B96.1 Klebsiella pneumoniae [K. pneumoniae] as the cause of diseases classified elsewhere; B96.89 Other specified bacterial agents as the cause of diseases classified elsewhere; G30.9 Alzheimer's disease, unspecified; E11.65 Type 2 diabetes mellitus with hyperglycemia; Z79.4 Long term (current) use of insulin; I25.10 Atherosclerotic heart disease of native coronary artery without angina pectoris; I11.9 Hypertensive heart disease without heart failure; E03.9 Hypothyroidism, unspecified; Z93.1 Gastrostomy status; Z93.3 Colostomy status; Z20.822 Contact with and (suspected) exposure to COVID-19; E11.22 Type 2 diabetes mellitus with diabetic chronic kidney disease; I12.9 Hypertensive chronic kidney disease with stage 1 through stage 4 chronic kidney disease, or unspecified chronic kidney disease; Z86.73 Personal history of transient ischemic attack (TIA), and cerebral infarction without residual deficits

== ENCOUNTER 2022-09-06 15:08 | Inpatient (IN) | payer OTHER ==
[~2022-09-06] VITALS: Ht 157.5 cm; Wt 49.9 kg
[~2022-09-06 15:08] MED LIST changes: +CLOPIDOGREL BIS75 MG; +SERTRALINE HCL25 MG; +XOPENEX0.63 MG/3 IH
--- NOTE | 2022-09-06 15:22 | NUR ---
PARAMEDICOS REFIEREN PACIENTE ESTA SEPTICA, PACIENTE CON COLOCTOMIA, ARORA Y PEG TUBE.
--- NOTE | 2022-09-06 17:44 | NUR ---
FEMINA ALERTA Y ORIENTADA EVALUADA POR DR [facility] [place] MED[facility]. SE EDUCA A PTE Y FAMILIAR Y REFIEREN ENTENDER. SE COLECTAN MUESTRAS DE ARRON BAJO MEDIDAS ASEPTICAS. PENDIENTE X-RAY.
[2022-10-16] MEDS ORDERED: CARDIZEM60 MG PO (08:49)
[2022-10-16] MEDS ORDERED: LIPITOR40 MG PO (08:49)
[2022-10-16] MEDS ORDERED: COZAAR50 MG PO (08:50)
[2022-10-16] MEDS ORDERED: GABAPENTIN300 MG PO (08:51)
[2022-10-16] MEDS ORDERED: HYDRALAZINE HCL50 MG PO (08:51)
[2022-10-16] MEDS ORDERED: SERTRALINE HCL25 MG GT (08:52)
[2022-10-16] MEDS ORDERED: LANSOPRAZOLE30 MG GT (08:52)
[2022-10-16] MEDS ORDERED: LEVOTHYROXINE75 MCG PO (08:53)
[2022-10-16] MEDS ORDERED: ABANEU-SL TABL1 EACH GT (08:54)
[2022-10-16] MEDS ORDERED: FOLIC ACID1 MG PO (08:55)
[2022-10-16] MEDS ORDERED: CENTRUM MU9 MG/15 ML PO (08:56)
[2022-10-16] MEDS ORDERED: VITAMIN D3125 MC2 GT (08:56)
[2022-10-16] MEDS ORDERED: FUSION PLUS CA1 EACH GT (08:58)
[2022-10-16] MEDS ORDERED: XOPENEX CO1.25 MG/0. IH (08:59)
[2022-10-16] MEDS ORDERED: HUMULIN N100 UNIT/2 SUBCUTANEO ×2 (09:01)
== END 2022-10-16 13:56 | disposition home or self-care (01) | DRG 872 ==
LOC: ER 15:08 → ICU-2 22:10 → ICU 22:10 → ER 22:47 → ICU 09-07 07:45 → MEDJ 09-11 20:20 → ICU 09-11 22:03 → SURH 09-12 20:15
PROVIDERS: ADMIT Internal Medicine; ATTEND Internal Medicine
PROC: 4A12X4Z Monitoring of Cardiac Electrical Activity, External Approach (ICD-10-PCS; principal; 2022-09-06)
PROC: BW21ZZZ Computerized Tomography (CT Scan) of Abdomen and Pelvis (ICD-10-PCS; 2022-09-06)
PROC: 02HV33Z Insertion of Infusion Device into Superior Vena Cava, Percutaneous Approach (ICD-10-PCS; 2022-09-07)
PROC: 3E0F7SF Introduction of Other Gas into Respiratory Tract, Via Natural or Artificial Opening (ICD-10-PCS; 2022-09-07)
PROC: 8E0ZXY6 Isolation (ICD-10-PCS; 2022-09-08)
PROC: 30243N1 Transfusion of Nonautologous Red Blood Cells into Central Vein, Percutaneous Approach (ICD-10-PCS; 2022-09-20)
DX: A41.1 Sepsis due to other specified staphylococcus (principal); K94.23 Gastrostomy malfunction; N39.0 Urinary tract infection, site not specified; N17.9 Acute kidney failure, unspecified; E87.1 Hypo-osmolality and hyponatremia; E46 Unspecified protein-calorie malnutrition; Z16.342 Resistance to multiple antimycobacterial drugs; Z68.1 Body mass index [BMI] 19.9 or less, adult; L89.202 Pressure ulcer of unspecified hip, stage 2; E11.628 Type 2 diabetes mellitus with other skin complications; E87.5 Hyperkalemia; D50.0 Iron deficiency anemia secondary to blood loss (chronic); D63.8 Anemia in other chronic diseases classified elsewhere; E86.0 Dehydration; I13.10 Hypertensive heart and chronic kidney disease without heart failure, with stage 1 through stage 4 chronic kidney disease, or unspecified chronic kidney disease; E11.29 Type 2 diabetes mellitus with other diabetic kidney complication; N18.9 Chronic kidney disease, unspecified; G30.9 Alzheimer's disease, unspecified; F02.80 Dementia in other diseases classified elsewhere, unspecified severity, without behavioral disturbance, psychotic disturbance, mood disturbance, and anxiety; B96.20 Unspecified Escherichia coli [E. coli] as the cause of diseases classified elsewhere; B96.1 Klebsiella pneumoniae [K. pneumoniae] as the cause of diseases classified elsewhere; B95.62 Methicillin resistant Staphylococcus aureus infection as the cause of diseases classified elsewhere; B95.7 Other staphylococcus as the cause of diseases classified elsewhere; Z66 Do not resuscitate; Z75.2 Other waiting period for investigation and treatment; Z75.8 Other problems related to medical facilities and other health care; Z74.01 Bed confinement status; Z79.84 Long term (current) use of oral hypoglycemic drugs; Z79.4 Long term (current) use of insulin